=== PATIENT | male | born 1975 | race Caucasian/White ===

== ENCOUNTER → 2019-12-30 | Day surgery (SDC) | payer OTHER ==
[2019-12-27 10:42] LABS: Basophils # (auto) 0 uL; Basophils % (auto) 0.7 % (0.0-2.0); Eosinophils # (auto) 0.1 uL; Eosinophils % (auto) 2.2 % (0.0-7.0); Hematocrit 43.1 % (41.0-53.0); Hemoglobin 14.9 g/dL (13.5-17.5); Lymphocytes # (auto) 1.9 uL; Lymphocytes % (auto) 31.3 % (10.0-50.0); Mean Corpuscular Hemoglobin 29.8 pg (28.0-32.0); Mean Corpuscular Hgb Conc. 34.4 g/dL (32.0-36.0); Mean Corpuscular Volume 86.5 fL (80.0-100.0); Monocytes # (auto) 0.5 uL; Monocytes % (auto) 8.2 % (0.0-12.0); Neutrophils # (auto) 3.5 uL; Neutrophils % (auto) 57.6 % (37.0-80.0); Nucleated Red Blood Cells % 0.2 %; Platelet Count (auto) 193 10^3/uL (140-450); Red Blood Cells 4.98 10^6/uL (4.5-5.90); Red Cell Distribution Width 13.1 % (11.8-14.3)
[2019-12-27 10:53] LABS: Urine Bacteria NONE SEEN /hpf (None Seen); Urine Blood Negative /uL (Negative); Urine Hyaline Cast FEW /lpf (0 - 2); Urine Specific Gravity 1.008 (1.001-1.035); Urine WBC <1 /hpf (0 - 3)
[2019-12-27 10:56] LABS: INR 1.06 (0.9-1.15); Partial Thromboplastin Time 27.7 sec (23.64-32.05)
[2019-12-27 11:03] LABS: Potassium 3.4 mmol/L (3.5-5.1)
[2019-12-27 11:46] LABS: Albumin 3.7 g/dL (3.4-5.0); BUN/Creatinine Ratio 9.4; Bilirubin, Total 0.5 mg/dL (0.2-1.0); Total Protein 7.2 g/dL (6.4-8.2)
[~2019-12-30] VITALS: Ht 175.3 cm; Wt 61.2 kg
[~2019-12-30] MED LIST: HYDROmorphone HCL 2 MG/ML VL IV PRN; LIDOCAINE 1% (LOCAL ANESTH.) PF 5ml SDV ONE; METOCLOPRAMIDE HCL 5MG/ml INJ 2ml VIAL ONE; MIDAZOLAM HCL 1MG/1ML-2 ML VIAL ONE; NALOXONE HCL 0.4 MG/ML VIAL IV PRN; ONDANSETRON HCL 4 MG/2 ML VIAL IV PRN; PROPOFOL 10 MG/ML 20 ML IV ONE; ROCURONIUM 10MG/ML 10ML VIAL IV ONE; SUCCINYLCHOLINE CHLORIDE 20 MG/ML 10ML VIAL IV ONE; ceFAZolin 1GM/50ML 50 ML IV ONE; fentaNYL CITRATE 100 MCG/2 ML VL ONE
[2019-12-30] MEDS: HYDROmorphone HCL 2 MG/ML VL IV PRN ×2 (14:21→14:31)
[2019-12-30 15:02] VITALS: BP 125/83
== END | disposition home or self-care (01) ==
LOC: SUR 10:20
PROVIDERS: ATTEND Orthopaedic Surgery
DX: M25.322 Other instability, left elbow (principal); S53.432A Radial collateral ligament sprain of left elbow, initial encounter; K21.9 Gastro-esophageal reflux disease without esophagitis; N18.9 Chronic kidney disease, unspecified; M19.90 Unspecified osteoarthritis, unspecified site; X58.XXXA Exposure to other specified factors, initial encounter; Y93.89 Activity, other specified; Y92.89 Other specified places as the place of occurrence of the external cause; Y99.8 Other external cause status
CPT/HCPCS: 24344; 36415; 80053; 81001; 85025; 85610; 85730; 93005; C1713; J0330; J0690; J1170; J2250; J2704; J2765; J3010